=== PATIENT | female | born 1995 | race Caucasian/White ===

== ENCOUNTER 2017-03-29 22:40 | Emergency (ER) | payer OTHER | END 2017-03-30 07:53 | disposition home or self-care (01) | LOC: FTE 22:40 | DX: J00 Acute nasopharyngitis [common cold] (principal) | CPT/HCPCS: 71045; 99283-25 ==

== ENCOUNTER 2018-08-23 13:38 | Emergency (ER) | payer OTHER | END 2018-08-23 16:06 | disposition home or self-care (01) | LOC: FTE 16:06 | DX: L23.9 Allergic contact dermatitis, unspecified cause (principal) | CPT/HCPCS: 99283 ==